=== PATIENT | female | born 1960 | race Caucasian/White ===

== ENCOUNTER → 2017-02-07 | Outpatient (CLI) | payer OTHER ==
--- NOTE | 2017-02-07 09:34 | REPMRS ---
Patient History The patient states she has not had a clinical breast exam in over a year. Patient is nulliparous. Family history of breast cancer in paternal aunt at age 50 or over. Benign excisional biopsy of the left breast, 2000. Digital Woman Screen Mammo: February 07, 2017 - Exam #: [id number] Bilateral CC and MLO view(s) were taken. Technologist: Cassie Ann, Technologist Prior study comparison: February 07, 2016, bilateral digital mammo screening bilat, performed at [facility]. February 03, 2015, right breast digital mammo diagnostic unilateral, performed at [facility]. FINDINGS: The breast tissue is extremely dense which could obscure a lesion on mammography. There is no evidence of cancer on this mammogram. No significant changes when compared with prior studies. ASSESSMENT: BI-RADS/ACR category 2 mammogram. Benign finding(s). Recommendation Routine screening mammogram of both breasts in 1 year (for women over age 40). This mammogram was interpreted with the aid of an FDA-approved computer-aided dectection system. Electronically Signed By: Musa Pathak MD 02/07/17 0934
--- NOTE | 2017-02-08 09:32 | DEXA ---
AP SPINE L1 - L4 0.983 -1.7 -0.8 LT FEMUR TOTAL 0.778 -1.8 -1.1 RT FEMUR TOTAL 0.766 -1.9 -1.2 TOTAL BODY TOTAL OTHER DUAL FEMUR FRAX* ASSESSMENT Risk factors: None. 10 year probability of fracture Major osteoporotic fracture 8.9 % Hip fracture 1.6 % COMMENTS: There is low bone density of the spine and hips. FOLLOW-UP: Recommendation for the next bone density exam: 2 years. RAFAD
== END ==
LOC: M WHC 07:54
PROVIDERS: ATTEND Internal Medicine
DX: Z12.31 Encounter for screening mammogram for malignant neoplasm of breast (principal); M85.9 Disorder of bone density and structure, unspecified; R92.8 Other abnormal and inconclusive findings on diagnostic imaging of breast
CPT/HCPCS: 77080; G0202

== ENCOUNTER → 2018-02-11 | Outpatient (CLI) | payer OTHER | LOC: M WHC 08:54 | DX: Z12.31 Encounter for screening mammogram for malignant neoplasm of breast (principal) | CPT/HCPCS: 77067 ==

== ENCOUNTER → 2019-02-19 | Outpatient (CLI) | payer OTHER ==
--- NOTE | 2019-02-19 09:55 | REPMRS ---
Patient History The patient states she has not had a clinical breast exam in over a year. Family history of breast cancer at age 50 or over in paternal aunt. Benign excisional biopsy of the left breast, 2000. No Hormone Replacement Therapy 3D TOMOSYNTHESIS WAS PERFORMED. [facility] lifetime risk for breast cancer is 14.8%. Digital Woman Screen Mammo: February 19, 2019 - Exam #: [id number] Bilateral CC and MLO view(s) were taken. Technologist: Adriane Mccain, Technologist Prior study comparison: February 11, 2018, bilateral digital woman screen mammo performed at [facility]. February 07, 2017, digital woman screen mammo performed at [facility]. FINDINGS: The breast tissue is extremely dense which could obscure a lesion on mammography. There is no evidence of cancer on this mammogram. Large coarse benign appearing calcifications are present. No significant changes when compared with prior studies. Assessment: BI-RADS/ACR category 2 mammogram. Benign Findings. Recommendation Routine screening mammogram of both breasts in 1 year (for women over age 40). This mammogram was interpreted with the aid of an FDA-approved computer-aided dectection system. Electronically Signed By: Musa Pathak MD 02/19/19 0917
== END ==
LOC: M WHC 08:20
PROVIDERS: ATTEND Internal Medicine
DX: Z12.31 Encounter for screening mammogram for malignant neoplasm of breast (principal); Z80.3 Family history of malignant neoplasm of breast

== ENCOUNTER → 2020-03-24 | Outpatient (CLI) | payer OTHER ==
--- NOTE | 2020-03-24 09:31 | REPMRS ---
Patient History The patient states she has not had a clinical breast exam in over a year. Patient is nulliparous. Family history of breast cancer at age 50 or over in paternal aunt. Benign excisional biopsy of the left breast, 2000. No Hormone Replacement Therapy 3D TOMOSYNTHESIS WAS PERFORMED. The [facility] lifetime risk for breast cancer is 14.4%. Volpara density c. Digital Woman Screen Mammo: March 24, 2020 - Exam #: [id number] Bilateral CC and MLO view(s) were taken. Technologist: Gertrude Conteh, Technologist Prior study comparison: February 19, 2019, bilateral digital woman screen mammo performed at [facility]. February 11, 2018, bilateral digital woman screen mammo performed at [facility]. FINDINGS: The breast tissue is heterogeneously dense. This may lower the sensitivity of mammography. There has been no change in the appearance of the mammogram from the prior studies. There is a moderate amount of residual fibroglandular tissue which is fairly symmetric. There is no interval development of dominant mass, areas of architectural distortion, or clustered microcalcification typical of malignancy. No significant changes when compared with prior studies. Assessment: BI-RADS/ACR category 1 mammogram. Negative Mammogram. Recommendation Routine screening mammogram in 1 year (for women over age 40). This mammogram was interpreted with the aid of an FDA-approved computer-aided dectection system. Electronically Signed By: Musa Pathak MD 03/24/20 0931
== END ==
LOC: M WHC 06:39
PROVIDERS: ATTEND Internal Medicine
DX: Z12.31 Encounter for screening mammogram for malignant neoplasm of breast (principal)

== ENCOUNTER → 2022-05-18 | Outpatient (CLI) | payer OTHER ==
[~2022-05-18] MED LIST: CALCCAP4 PO; CHEL100T4 PO; MOOD400T PO; VENTAER INH; VITA100T59 PO; VITA200028 PO; VITMTA PO; ZYFLAMEND PO; ZYRTTAB8 PO
== END ==
LOC: M WHC 08:29
PROVIDERS: ATTEND Nurse Practitioner Women's Health
DX: N60.01 Solitary cyst of right breast (principal)

== ENCOUNTER → 2022-11-13 | Outpatient (CLI) | payer OTHER | LOC: M WHC 13:29 | PROVIDERS: ATTEND Nurse Practitioner Women's Health | DX: Z12.31 Encounter for screening mammogram for malignant neoplasm of breast (principal); R92.2 Inconclusive mammogram ==

== ENCOUNTER → 2023-03-12 | Outpatient (CLI) | payer OTHER | LOC: M CARPUL 08:06 | PROVIDERS: ATTEND Internal Medicine Hematology | DX: R01.1 Cardiac murmur, unspecified (principal) ==

== ENCOUNTER → 2023-11-20 | Outpatient (CLI) | payer OTHER ==
[~2023-11-20] MED LIST changes: +MOOD PLUS SAM-400 MG PO; -MOOD400T PO
== END ==
LOC: M WHC 12:29
PROVIDERS: ATTEND Nurse Practitioner Women's Health
DX: Z12.31 Encounter for screening mammogram for malignant neoplasm of breast (principal)

== ENCOUNTER → 2024-02-18 | Outpatient (CLI) | payer OTHER | LOC: M PLAIMG 12:31 | PROVIDERS: ATTEND Internal Medicine Hematology | DX: I27.20 Pulmonary hypertension, unspecified (principal); I35.8 Other nonrheumatic aortic valve disorders ==

== ENCOUNTER → 2024-11-20 | Outpatient (CLI) | payer OTHER | LOC: M WHC 10:28 | PROVIDERS: ATTEND Surgery | DX: Z12.31 Encounter for screening mammogram for malignant neoplasm of breast (principal); R92.333 Mammographic heterogeneous density, bilateral breasts ==

== ENCOUNTER → 2024-11-20 | Outpatient (CLI) | payer OTHER | LOC: M WHC 09:40 | PROVIDERS: ATTEND Surgery | DX: Z12.31 Encounter for screening mammogram for malignant neoplasm of breast (principal); R92.343 Mammographic extreme density, bilateral breasts ==